=== PATIENT | female | born 1975 | race African-American/Black ===

== ENCOUNTER 2019-03-26 13:48 | Inpatient (IN) | payer OTHER ==
[~2019-03-26] VITALS: Ht 167.6 cm; Wt 69.8 kg
[~2019-03-26 13:48] MED LIST: APAP500 PO; MULTI-DAY VITA1 EACH PO; VERAPAMIL E.R240 M1 PO; VERAPAMIL ER180 M1 PO
[2019-03-26 13:53] VITALS: BP 164/114
[2019-03-26 14:07] LABS: ABSOLUTE NEUTROPHILS 2.1 thou/uL (1.4-8.2); BASOPHILS 1.4 % (0.0-2.0); HEMATOCRIT 28.6 % (37.0-47.0); HEMOGLOBIN 8.8 gm/dL (12.0-15.0); LYMPHOCYTES 20.5 % (24.0-44.0); MCH 24.1 pg (26.0-34.0); MCHC 30.7 g/dL (28.0-37.0); MCV 78.4 fL (80.0-100.0); MONOCYTES 8.6 % (1.0-8.0); PLATELET COUNT 244 thou/uL (150-400); POLYS 68.5 % (36.0-66.0); RBC 3.65 mil/uL (4.20-5.00); RDW 20.5 % (10.5-14.5)
[2019-03-26 14:15] LABS: ANION GAP 20 mmol/L (7-16); BUN 5 mg/dL (7-18); CHLORIDE 98 mmol/L (98-107); CO2 18 mmol/L (21-32); GLUCOSE 87 mg/dL (74-106); POTASSIUM 3.3 mmol/L (3.5-5.1); SODIUM 136 mmol/L (136-145)
[2019-03-26] MEDS ORDERED: IRON325 PO (14:24)
[2019-03-26 14:25] LABS: ALBUMIN 3.6 g/dL (3.4-5.0); LIPASE 316 U/L (73-393); SGOT 57 U/L (15-37); SGPT 34 U/L (30-65); TOTAL PROTEIN 8.6 g/dL (6.4-8.2); TROPONIN-I <0.06 ng/mL (<0.06)
[2019-03-26 14:36] LABS: HYPOCHROMASIA 2+; MACROCYTES 1+; MICROCYTES 2+; OVALOCYTES 1+; POLYCHROMASIA SLIGHT
[2019-03-26 14:55] LABS: URINE BILIRUBIN NEGATIVE (Negative); URINE BLOOD 3+ (Negative); URINE CLARITY CLEAR; URINE COLOR YELLOW; URINE GLUCOSE-RANDOM* NEGATIVE (Negative); URINE KETONES TRACE (Negative); URINE LEUKOCYTES-REFLEX NEGATIVE (Negative); URINE NITRITE-REFLEX NEGATIVE (Negative); URINE PROTEIN (DIPSTICK) NEGATIVE (Negative); URINE SPECIFIC GRAVITY <= 1.005 (1.005-1.035); URINE UROBILINOGEN 0.2 E.U./dl (0.2-1.0)
[2019-03-26 15:07] LABS: BACTERIA-REFLEX None Seen /HPF (None Seen); CASTS None Seen /LPF (None Seen); CRYSTALS None Seen /LPF (None Seen); SQUAMOUS 4-10 Moderate /LPF (0-3); URINE RBC 0-2 Rare /HPF (0-2); URINE WBC-REFLEX None Seen /HPF (0-5)
[2019-03-26 15:29] LABS: AMP/METHAMP Negative (Negative); BARBITURATES Negative (Negative); BENZODIAZEPINES Negative (Negative); COCAINE Negative (Negative); METHADONE Negative (Negative); OPIATES Negative (Negative); PCP Negative (Negative)
[2019-03-26 19:10] VITALS: BP 133/92
[2019-03-26 19:15] VITALS: BP 138/93
[2019-03-26 20:43] VITALS: BP 148/93
[2019-03-26] MEDS ORDERED: VERAPAMIL E.R240 M1 PO (20:53)
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
[2019-03-27 00:22] VITALS: BP 146/97
[2019-03-27 02:46] LABS: HEMATOCRIT 27.1 % (37.0-47.0); HEMOGLOBIN 8.3 gm/dL (12.0-15.0); MCH 24.1 pg (26.0-34.0); MCHC 30.7 g/dL (28.0-37.0); MCV 78.5 fL (80.0-100.0); RBC 3.46 mil/uL (4.20-5.00); RDW 21.2 % (10.5-14.5); WBC 4.3 thou/uL (4.0-11.0)
[2019-03-27 03:19] LABS: POTASSIUM 3.1 mmol/L (3.5-5.1)
[2019-03-27 04:00] VITALS: BP 146/94
[2019-03-27 07:50] VITALS: BP 138/94
[2019-03-27 11:08] VITALS: BP 140/99
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
[2019-03-27 15:48] VITALS: BP 138/94
[2019-03-27 19:39] VITALS: BP 136/94
--- NOTE | 2019-03-27 20:40 | NUR ---
PATIENT ALERT AND ORIENTED AND COOPERATIVE WITH POC. PATIENT COMPLAIN OF HEADACHE THROUGHOUT THE DAY AND WAS GIVEN PAIN MED. DID NOT COMPLAIN OF CHEST PAIN. PATIENT UP AD TAYLOR TO BATHROOM. PATIENT STATES VERAPAMIL IS HELPING HER BP.
[2019-03-28 03:30] VITALS: BP 135/94
[2019-03-28 05:06] LABS: HEMATOCRIT 26.1 % (37.0-47.0); HEMOGLOBIN 7.9 gm/dL (12.0-15.0); MCH 24.2 pg (26.0-34.0); MCHC 30.4 g/dL (28.0-37.0); MCV 79.5 fL (80.0-100.0); RBC 3.28 mil/uL (4.20-5.00); RDW 20.8 % (10.5-14.5); WBC 3.5 thou/uL (4.0-11.0)
[2019-03-28 05:23] LABS: CALCIUM 9.2 mg/dL (8.5-10.1); CREATININE 0.9 mg/dL (0.6-1.0)
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
[2019-03-28 08:35] VITALS: BP 142/95
--- NOTE | 2019-03-28 08:55 | 2DMMODE ---
[facility] [place] [address] 2 D/M-MODE ECHOCARDIOGRAM Name: MARLYSOTTONIEL RAMOS Room #: 355-P ADM IN ..#: [id number] Admission: 03/26/19 Attend Phys: Cristian Peters MD Discharge: Date of : 71 Report #: [id number] THIS REPORT FOR: //name// APPROVED REPORT Study performed: 03/28/2019 07:47:23 EXAM: Comprehensive 2D, Doppler, and color-flow Echocardiogram Patient Location: Echo lab Status: routine BSA: 1.78 HR: 74 bpm BP: 135/94 mmHg Rhythm: Atrial Flutter Other Information Study Quality: Good Indications Syncope Chest Pain Hypertension/HDD 2D Dimensions RVDd: 35.34 mm IVSd: 10.89 (7-11mm) LVOT Diam: 20.34 (18-24mm) LVDd: 43.79 mm PWd: 11.12 (7-11mm) Ascending Ao: 35.44 (22-36mm) LVDs: 30.79 (25-40mm) Aortic Root: 32.26 mm IVC: 11.00 mm Volumes Left Atrial Volume (Systole) Single Plane 4CH: 53.00 mL Single Plane 2CH: 47.26 mL LA ESV Index: 30.00 mL/m2 Aortic Valve AoV Peak Jeremy.: 1.63 m/s AO Peak Gr.: 10.63 mmHg LVOT Max P.15 mmHg LVOT Max V: 1.02 m/s KRISHNA Vmax: 2.03 cm2 Mitral Valve E/A Ratio: 1.2 [facility] [address] [place] [address] 2 D/M-MODE ECHOCARDIOGRAM Name: OTTONIEL FRANKEL Room #: 355-P [facility].#: [id number] Admission: 03/26/19 Attend Phys: Cristian Peters MD Discharge: Date of : 71 Report #: [id number] MV Decel. Time: 225.04 ms MV E Max Jeremy.: 0.60 m/s MV A Jeremy.: 0.52 m/s MV PHT: 65.26 ms Pulmonary Valve PV Peak Jeremy.: 0.87 m/s PV Peak Gr.: 3.07 mmHg Pulmonary Vein P Vein S: 0.38 m/s P Vein A: 0.65 m/s P Vein D: 0.56 m/s P Vein A Dur.: 92.3 msec P Vein S/D Ratio: 0.68 Tricuspid Valve TR Peak Jeremy.: 2.14 m/s RAP Estimate: 5.00 mmHg TR Peak Gr.: 18.31 mmHg PA Pressure: 23.00 mmHg Left Ventricle The left ventricle is normal size. There is normal left ventricular wall thickness. The left ventricular systolic function is normal. The left ventricular ejection fraction is within the normal range. LVEF is 55-60%. The left ventricular diastolic function is normal. Right Ventricle The right ventricle is normal size. The right ventricular systolic function is normal. Atria The left atrium size is normal. The right atrium size is normal. Aortic Valve The aortic valve is normal in structure. No aortic regurgitation is present. There is no aortic valvular stenosis. Mitral Valve The mitral valve is normal in structure. Trace mitral regurgitation. No evidence of mitral valve stenosis. Tricuspid Valve The tricuspid valve is normal in structure. Trace tricuspid regurgitation. Estimated PAP is 23mmHg. Pulmonic Valve The pulmonary valve is normal in structure. Trace pulmonic [facility] [address] [place] [address] 2 D/M-MODE ECHOCARDIOGRAM Name: OTTONIEL FRANKEL Room #: 355-P [facility] IN ..#: [id number] Admission: 03/26/19 Attend Phys: Cristian Peters MD Discharge: Date of : 71 Report #: [id number] regurgitation. Great Vessels The aortic root is normal in size. IVC is normal in size and collapses >50% with inspiration. Pericardium There is no pericardial effusion. <Conclusion> The left ventricle is normal size. LVEF is 55-60%. The aortic valve is normal in structure. The mitral valve is normal in structure. Trace mitral regurgitation. The tricuspid valve is normal in structure. Trace tricuspid regurgitation. Estimated PAP is 23mmHg. The pulmonary valve is normal in structure. Trace pulmonic regurgitation. There is no pericardial effusion. <ELECTRONICALLY SIGNED> By: William Perera MD 03/28/19854 4 4 William Perera MD /INF
[2019-03-28 10:20] LABS: % SATURATION 5 % (20-39); IRON 17 ug/dL (50-170); TIBC 376 ug/dL (250-450)
[2019-03-28 13:35] VITALS: BP 142/92
--- NOTE | 2019-03-28 13:56 | NUR ---
PT HAD AN ECHO THIS EARLY THIS MORNING. LATE MORNING, SHE WENT TO THE NUCLEAR MEDICINE LAB TO GET A STRESS TEST. PATIENT EXPRESSED RELIEF THAT SHE CAN FINALLY EAT AFTER THESE PROCEDURES. AM
--- NOTE | 2019-03-28 13:58 | EKG ---
[address] [address] ELECTROCARDIOGRAM REPORT Name: OTTONIEL FRANKEL Room #: 355-P ADM IN M.R.#: [id number] Admission: 03/26/19 Attend Phys: Cristian Peters MD Discharge: Date of : 71 Report #: [id number] THIS REPORT FOR: //name// [facility] ED Test Date: 2019-03-26 Test Time: 13:48:33 Pat Name: OTTONIEL FRANKEL Department: Room: 355 Gender: F [employer]: [place] : 1975 Requested By: Temitope Lyn Order Number: [id number] MD: Donnie Willett Measurements Intervals [place] Rate: 78 P: 81 TN: 141 QRS: 19 QRSD: 86 T: 60 QT: 412 QTc: 470 Interpretive Statements Sinus rhythm Compared to ECG 12/20/2015 23:03:30 Electronically Signed On 03-28-2019 13:58:38 CDT by Donnie Willett [email or web address] <ELECTRONICALLY SIGNED> By: Donnie Willett MD 03/28/19 1358 D: 09/1347 47 Donnie Willett MD /ADDIE
--- NOTE | 2019-03-28 14:26 | NUR ---
I have reviewed the student's documentation.
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
[2019-03-28 15:55] VITALS: BP 120/84
[2019-03-28] MEDS ORDERED: VERAPAMIL HCL180 M4 PO (16:26)
[2019-03-28] MEDS ORDERED: LEXAPRO 10 MG T10 M1 PO (16:27)
[2019-03-28 16:50] VITALS: BP 120/84
== END 2019-03-28 18:13 | disposition home or self-care (01) | DRG 305 ==
LOC: ER 13:48 → 3W 16:15 → EROBS 16:15 → 3W 19:16
PROVIDERS: Nurse Practitioner; Nurse Practitioner Family; ADMIT Hospitalist
PROC: 3E0234Z Introduction of Serum, Toxoid and Vaccine into Muscle, Percutaneous Approach (ICD-10-PCS; principal; 2019-03-27)
DX: I16.0 Hypertensive urgency (principal); I48.92 Unspecified atrial flutter; I48.91 Unspecified atrial fibrillation; R55 Syncope and collapse; I10 Essential (primary) hypertension; Z60.2 Problems related to living alone; F41.9 Anxiety disorder, unspecified; R00.2 Palpitations; D50.9 Iron deficiency anemia, unspecified; R07.89 Other chest pain; N92.0 Excessive and frequent menstruation with regular cycle; Z79.899 Other long term (current) drug therapy; Z82.49 Family history of ischemic heart disease and other diseases of the circulatory system; Z23 Encounter for immunization
CPT/HCPCS: 10879

== ENCOUNTER 2020-07-10 20:31 | Emergency (ER) | payer OTHER ==
[~2020-07-10] VITALS: Ht 167.6 cm; Wt 65.8 kg
[~2020-07-10 20:31] MED LIST changes: +IRON325 PO; +LEXAPRO 10 MG T10 M1 PO; +VERAPAMIL HCL180 M4 PO
[2020-07-10 20:38] VITALS: BP 144/99
== END 2020-07-10 21:12 | disposition left against medical advice (07) ==
LOC: ER 20:31
DX: F10.10 Alcohol abuse, uncomplicated (principal); I48.92 Unspecified atrial flutter; Z79.899 Other long term (current) drug therapy; Z98.51 Tubal ligation status; Y90.9 Presence of alcohol in blood, level not specified